=== PATIENT | female | born 1975 | race Caucasian/White ===

== ENCOUNTER 2017-08-28 16:49 | Inpatient (IN) | payer OTHER ==
[~2017-08-28] VITALS: Ht 152.4 cm; Wt 29.5 kg
[2017-08-28] MEDS ORDERED: RESTORIL30 MG (19:14)
[2017-08-28] MEDS ORDERED: DURAGESIC1 EAC1 (19:14)
[2017-09-16] MEDS ORDERED: FENTANYL1 EAC3 TD (12:27)
== END 2017-09-21 19:11 | disposition home health service (06) | DRG 871 ==
LOC: SURH 16:49
PROC: 8E0ZXY6 Isolation (ICD-10-PCS; 2017-08-28)
PROC: 06HM33Z Insertion of Infusion Device into Right Femoral Vein, Percutaneous Approach (ICD-10-PCS; principal; 2017-08-29)
PROC: 3E0436Z Introduction of Nutritional Substance into Central Vein, Percutaneous Approach (ICD-10-PCS; 2017-08-29)
PROC: 0D20XUZ Change Feeding Device in Upper Intestinal Tract, External Approach (ICD-10-PCS; 2017-08-31)
PROC: 3E0F7GC Introduction of Other Therapeutic Substance into Respiratory Tract, Via Natural or Artificial Opening (ICD-10-PCS; 2017-09-01)
PROC: B246ZZZ Ultrasonography of Right and Left Heart (ICD-10-PCS; 2017-09-04)
PROC: 06PYX3Z Removal of Infusion Device from Lower Vein, External Approach (ICD-10-PCS; 2017-09-05)
PROC: 30233N1 Transfusion of Nonautologous Red Blood Cells into Peripheral Vein, Percutaneous Approach (ICD-10-PCS; 2017-09-11)
DX: A41.81 Sepsis due to Enterococcus (principal); R65.21 Severe sepsis with septic shock; E46 Unspecified protein-calorie malnutrition; K12.2 Cellulitis and abscess of mouth; K94.23 Gastrostomy malfunction; L98.498 Non-pressure chronic ulcer of skin of other sites with other specified severity; C49.0 Malignant neoplasm of connective and soft tissue of head, face and neck; E86.0 Dehydration; K29.60 Other gastritis without bleeding; E87.6 Hypokalemia; C03.1 Malignant neoplasm of lower gum; G89.3 Neoplasm related pain (acute) (chronic); E83.39 Other disorders of phosphorus metabolism; E83.42 Hypomagnesemia; B96.4 Proteus (mirabilis) (morganii) as the cause of diseases classified elsewhere; B96.1 Klebsiella pneumoniae [K. pneumoniae] as the cause of diseases classified elsewhere; Z16.24 Resistance to multiple antibiotics; J20.9 Acute bronchitis, unspecified; Z93.0 Tracheostomy status; D63.0 Anemia in neoplastic disease; A41.52 Sepsis due to Pseudomonas
CPT/HCPCS: 240